=== PATIENT | male | born 1965 | race Caucasian/White ===

== ENCOUNTER 2018-01-26 06:27 | Emergency (ER) | payer BC, OTHER ==
[2018-01-26 06:47] VITALS: TEMP 98.7; O2SAT 96
--- NOTE | 2018-01-26 06:50 | ED.PDOC ---
History of Present Illness - General Source: patient Exam Limitations: no limitations - History of Present Illness Initial Comments: the patient is a 52-year-old male presenting to the emergency room secondary to pain in his right testicle and indeed extending of the spermatic cord to the right lower quadrant. Pain has been intermittent over the last 6 months. No real urinary symptoms. He does lift weights. He did have a hydrocele repair on the left previously. The testicle itself feels essentially normal to me. No history of any penile discharge. No history of any significant high-risk behavior. No fevers. rotation of the testicle does not seem to improve or worsen the pain nor does adding or removing weight of the testicle. Timing/Duration: other - 6 months Severity: moderate Improving Factors: nothing Worsening Factors: nothing Associated Symptoms: denies symptoms <Dre Rushing - Last Filed: 01/26/18 06:58> <Jelly Anderson - Last Filed: 01/26/18 08:52> - General Chief Complaint: Problem Stated Complaint: swollen rt tesiticle Time Seen by Provider: 01/26/18 06:42 - History of Present Illness Allergies/Adverse Reactions: Allergies NO KNOWN ALLERGY Allergy (Verified 02/09/16 08:29) Home Medications: Ambulatory Orders Amlodipine Besylate [Norvasc] 10 mg PO DAILY 08/24/14 Clopidogrel Bisulfate [Plavix] 75 mg PO QD 08/24/14 Hydrochlorothiazide 25 mg PO DAILY 08/24/14 Lisinopril 40 mg PO BID 08/24/14 Metformin HCl 500 mg PO DAILY 08/24/14 Simvastatin [Zocor] 40 mg PO DAILY 08/24/14 Acetaminophen W/ Codeine [Tylenol W/ CODEINE #3] 1 ea PO Q6HRS PRN #30 Tamsulosin HCl [Flomax] 0.4 mg PO BEDTIME #10 cap 01/26/18 Review of Systems - Review of Systems Constitutional: States: no symptoms reported EENTM: States: no symptoms reported Respiratory: States: no symptoms reported Cardiology: States: no symptoms reported Gastrointestinal/Abdominal: States: see HPI Genitourinary: States: see HPI Musculoskeletal: States: no symptoms reported Skin: States: no symptoms reported Neurological: States: no symptoms reported Endocrine: States: no symptoms reported All other Systems: No Change from Baseline <Luan Rushingy Shar - Last Filed: 01/26/18 06:58> Past Medical History (General) - Patient Medical History Hx Seizures: No Hx Stroke: No Hx Dementia: No Hx Asthma: No Hx of COPD: No Hx Cardiac Disorders: Yes - DC 5 yrs ago Hx Congestive Heart Failure: No Hx Pacemaker: No Hx Hypertension: Yes Hx Thyroid Disease: No Hx Diabetes: Yes Hx Gastroesophageal Reflux: Yes Hx Renal Disease: No Hx Cancer: No Hx of HIV: No Hx Hepatitis C: No Hx MRSA: No Surgical History: tonsillectomy, other - Vaccination History Hx Tetanus, Diphtheria Vaccination: No Hx Influenza Vaccination: No Hx Pneumococcal Vaccination: No - Social History Hx Tobacco Use: No Hx Alcohol Use: No Hx Substance Use: No Hx Substance Use Treatment: No Hx Depression: No <СергейDre Filed: 01/26/18 06:58> Family Medical History - Family History Mother Family History: No Known Living Status: Still Living Hx Family Diabetes: Yes <Dre Rushing Last Filed: 01/26/18 06:58> Physical Exam - Physical Exam General Appearance: Alert, Comfortable, No apparent distress Eye Exam: bilateral normal Ears, Nose, Throat: hearing grossly normal Neck: full range of motion Respiratory: no respiratory distress, no accessory muscle use Cardiovascular/Chest: normal peripheral pulses, no edema Peripheral Pulses: radial,right: 2+, radial,left: 2+ Gastrointestinal/Abdominal: non tender, soft Rectal Exam: other - examination of the testicles does not reveal significant asymmetry. No definite palpable mass or 1 sore spot. No change in skin color. 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 Urinalysis is pending at this time. A GC chlamydia has been ordered which is a send out. If the urinalysis is clear then I do suspect the patient is likely having some cord pain possibly from the start of a small inguinal hernia. Care will be handed off to the oncoming ER physician. - EKG/XRAY/CT CT Ordered: No CT Interpretation Call Back: No <СергейLuansavannah Myles - Last Filed: 01/26/18 06:58> - Results/Orders Results/Orders: 0715 PT WAS REASSED HE HAS RIGHT FLANK TO RIGHT TESTICULAR PAIN INTERMITTANT FOR 6 MONTHS HE HAS HAD RENAL CALCULOUS AT AGE 16 THE PAIN IS AT TIMES ASSOCIATED WITH NAUSEA HE DENIES FEVER CHILLS NO GROSS HEMATURIA PE UNREMARKABLE CT ABD A URETERC CALCULOUS IS NOTED IN THE PROXIMAL URETER WITH MILD HYDRONEPHROSIS WILL CHECK CBC AND CHEMISTRY TO CHECK CALCIUM RENAL FUNCTION AND RULE OUT POSSIBLE INFECTION ASSOCIATED WITH PARTIAL OBSTRUCTION WILL GIVE TORADOL FOR RELEIF OF PAIN Laboratory Tests 01/26/18 06:41 Urine Color Yellow Urine Appearance Clear Urine pH 6.0 Ur Specific [place] 1.025 Urine Protein 30 Urine Glucose (UA) 100 H Urine Ketones Negative Urine Blood Trace-intact H Urine Nitrite Negative Urine Bilirubin Negative Urine Urobilinogen 0.2 Ur Leukocyte Esterase Negative Urine RBC 1-3 Urine WBC 0 Ur Epithelial Cells 0 Urine Bacteria 0 Laboratory Tests 01/26/18 01/26/18 01/26/18 06:41 08:00 08:00 WBC 6.8 RBC 5.88 Hgb 17.0 Hct 52.1 H MCV 88.6 MCH 29.0 MCHC 32.7 L RDW 14.4 Plt Count 299 MPV 8.4 Absolute Neuts (auto) 3.80 Absolute Lymphs (auto) 2.00 Absolute Monos (auto) 0.80 Absolute Eos (auto) 0.10 Absolute Basos (auto) 0.00 Neutrophils % 56.1 Lymphocytes % 29.9 Monocytes % 11.6 H Eosinophils % 1.8 Basophils % 0.6 Sodium 143 Potassium 3.6 Chloride 106 Carbon Dioxide 29 Anion Gap 11.6 L BUN 17 Creatinine 1.65 H BUN/Creatinine Ratio 10.3 Random Glucose 171 H Serum Osmolality 290.6 Calcium 10.5 H Total Bilirubin 0.8 AST 23 ALT 24 Alkaline Phosphatase 55 Serum Total Protein 7.6 Albumin 4.4 Globulin 3.2 Albumin/Globulin Ratio 1.4 Urine Color Yellow Urine Appearance Clear Urine pH 6.0 Ur Specific [place] 1.025 Urine Protein 30 Urine Glucose (UA) 100 H Urine Ketones Negative Urine Blood Trace-intact H Urine Nitrite Negative Urine Bilirubin Negative Urine Urobilinogen 0.2 Ur Leukocyte Esterase Negative Urine RBC 1-3 Urine WBC 0 Ur Epithelial Cells 0 Urine Bacteria 0 <Jelly Anderson - Last Filed: 01/26/18 08:52> Departure <Dre Rushing - Last Filed: 01/26/18 06:58> - Departure Time of Disposition: 08:48 Diet: diabetic diet Comments: suggest to follow with PCP AND Urologist <Jelly Anderson - Last Filed: 01/26/18 08:52> - Departure Clinical Impression: Ureteric calculus Clinical Impression: (Ruled Out): Testicle pain Disposition: Discharge to Home or Self Care Condition: Good Departure Forms: ED Discharge - Pt. Copy, Patient Portal Self Enrollment Referrals: Gonzalo Nguyen MD [Primary Care Provider] - 1-2 Weeks Prescriptions: Acetaminophen W/ Codeine [Tylenol W/ CODEINE #3] 1 ea PO Q6HRS PRN #30 PRN Reason: Abdominal Cramping Tamsulosin HCl [Flomax] 0.4 mg PO BEDTIME #10 cap Home Medications: Ambulatory Orders Amlodipine Besylate [Norvasc] 10 mg PO DAILY 08/24/14 Clopidogrel Bisulfate [Plavix] 75 mg PO QD 08/24/14 Hydrochlorothiazide 25 mg PO DAILY 08/24/14 Lisinopril 40 mg PO BID 08/24/14 Metformin HCl 500 mg PO DAILY 08/24/14 Simvastatin [Zocor] 40 mg PO DAILY 08/24/14 Acetaminophen W/ Codeine [Tylenol W/ CODEINE #3] 1 ea PO Q6HRS PRN #30 Tamsulosin HCl [Flomax] 0.4 mg PO BEDTIME #10 cap 01/26/18
--- NOTE | 2018-01-26 07:40 | CT ---
EXAM DESCRIPTION: Abdoment/Pelvis w/o Contrast CLINICAL HISTORY:52 years Male, right renal colic Comparison: July 29, 2014 TECHNIQUE: Contiguous axial images of the abdomen and pelvis were obtained followed by reconstruction images. This exam was performed according to our departmental dose-optimization program, which includes automated exposure control, adjustment of the mA and/or kV according to patient size and/or use of iterative reconstruction technique. FINDINGS: Lung bases: Lung bases are clear. Heart: Visualized heart is within normal limits in size. Liver:Unchanged left lobe liver cyst. Gallbladder:Unremarkable. No gallstones. No gallbladder wall thickening or pericholecystic fluid. Spleen:Unremarkable Pancreas: Pancreas is unremarkable. Adrenal glands:Within normal limits. Kidneys/ureters:5 mm calculus left renal lower pole. No left hydronephrosis. 6.8 mm calculus in the right proximal/mid ureter with resultant moderate hydroureteronephrosis. Additional punctate calculi in the right and left kidney. Bladder:Unremarkable. Pelvic organs: No acute abnormality Vascular structures: within normal limits Peritoneum: No free fluid. Lymph nodes: No abnormal lymph nodes. Stomach/small bowel/colon: Stomach is unremarkable. Small bowel is unremarkable. Colon is unremarkable. Appendix: No evidence of appendicitis. Bones: Mild spine degenerative changes. Soft tissues: Unremarkable.. IMPRESSION: 6.8 mm calculus in the right proximal/mid ureter with resultant moderate hydroureteronephrosis. Electronically signed by: Bayron Minaya MD 01/26/2018 7:38 AM CDT
[2018-01-26] MEDS ORDERED: KETOROLAC TROMETHAMINE INJ 30 MG/ML VIAL IV ONE (07:58)
[2018-01-26 08:38] VITALS: BP 149/99
== END 2018-01-26 09:00 | disposition home or self-care (01) ==
LOC: ER 06:27
DX: N13.2 Hydronephrosis with renal and ureteral calculous obstruction (principal); N50.811 Right testicular pain; E11.9 Type 2 diabetes mellitus without complications; K21.9 Gastro-esophageal reflux disease without esophagitis; I10 Essential (primary) hypertension; I25.2 Old myocardial infarction; Z79.899 Other long term (current) drug therapy
CPT/HCPCS: 36415; 74176; 80053; 81001; 85025; 87491; 87591; J1885

== ENCOUNTER → 2018-01-31 | Outpatient (CLI) | payer OTHER ==
--- NOTE | 2018-02-01 09:02 | RAD ---
EXAM DESCRIPTION: KUB CLINICAL HISTORY: KIDNEY STONES COMPARISON: CT of the abdomen pelvis dated 26 January 2018 TECHNIQUE: AP supine abdomen FINDINGS: A 7.4 mm diameter calculus is seen along the course of the proximal right ureter. Phleboliths are observed in the pelvis. A tiny 3.2 mm diameter calculus is seen overlying the left kidney. No right renal calculi are detected. The psoas margins are intact. The bowel gas pattern is unremarkable. No organomegaly is detected. IMPRESSION: 1. A 7.4 mm diameter calculus is observed along the course the proximal right ureter. 2. A mid pole left renal calculus is observed. Electronically signed by: Jordi Ortega MD 02/01/2018 9:00 AM CDT
== END ==
LOC: RAD 14:24
PROVIDERS: ATTEND Urology
DX: N20.2 Calculus of kidney with calculus of ureter (principal)

== ENCOUNTER 2020-04-15 18:22 | Emergency (ER) | payer BC, OTHER ==
--- NOTE | 2020-04-15 18:43 | ED.PDOC ---
History of Present Illness - General Chief Complaint: General Stated Complaint: L leg/arm numbness & ataxia Time Seen by Provider: 04/15/20 18:38 Source: patient Exam Limitations: no limitations, clinical condition - History of Present Illness Initial Comments: PATIENT PRESENTS WITH MILD LEFT SIDED WEAKNESS OF ARM AND LEG AND ATAXIA OF BOTH SINCE ABOUT 0700 THIS MORNING. DENIES OTHER SYMPTOMS, NO SOB, NO COUGH, NO FEVER. STATES HE HAD A OUTPATIENT BACK PROCEDURE DONE YESTERDAY BUT NO COMPLICATIONS FROM IT. PATIENT HAS BEEN OFF HIS XERALTO FOR 7 DAYS FOR THIS PROCEDURE PRIOR TO THE ONSET OF THESE SYMPTOMS. Improving Factors: nothing Worsening Factors: nothing Associated Symptoms: denies symptoms Allergies/Adverse Reactions: Allergies NO KNOWN ALLERGY Allergy (Verified 04/15/20 18:46) Home Medications: Ambulatory Orders Amlodipine Besylate [Norvasc] 10 mg PO DAILY 08/24/14 Clopidogrel Bisulfate [Plavix] 75 mg PO QD 08/24/14 Hydrochlorothiazide 25 mg PO DAILY 08/24/14 Lisinopril 40 mg PO BID 08/24/14 Metformin HCl [Metformin Hydrochloride] 500 mg PO DAILY 08/24/14 Simvastatin [Zocor] 40 mg PO DAILY 08/24/14 Acetaminophen W/ Codeine [Tylenol W/ CODEINE #3] 1 ea PO Q6HRS PRN #30 01/26/18 Tamsulosin HCl [Flomax] 0.4 mg PO BEDTIME #10 cap 01/26/18 Review of Systems - Review of Systems Constitutional: States: no symptoms reported EENTM: States: no symptoms reported Respiratory: States: no symptoms reported Cardiology: States: no symptoms reported Gastrointestinal/Abdominal: States: no symptoms reported Genitourinary: States: no symptoms reported Musculoskeletal: States: no symptoms reported Skin: States: no symptoms reported Neurological: States: see HPI Past Medical History (General) - Patient Medical History Hx Seizures: No Hx Stroke: No Hx Dementia: No Hx Asthma: No Hx of COPD: No Hx Cardiac Disorders: Yes - DC 5 yrs ago Hx Congestive Heart Failure: No Hx Pacemaker: No Hx Hypertension: Yes Hx Thyroid Disease: No Hx Diabetes: Yes Hx Gastroesophageal Reflux: Yes Hx Renal Disease: No Hx Cancer: No Hx of HIV: No Hx Hepatitis C: No Hx MRSA: No - Vaccination History Hx Tetanus, Diphtheria Vaccination: No Hx Influenza Vaccination: No Hx Pneumococcal Vaccination: No - Social History Hx Tobacco Use: No Hx Alcohol Use: No Hx Substance Use: No Hx Substance Use Treatment: No Hx Depression: No Family Medical History - Family History Mother Family History: No Known Living Status: Still Living Hx Family Diabetes: Yes Physical Exam - Physical Exam General Appearance: Agitated, Alert, Comfortable, Well Developed, Well Groomed, Well Hydrated, Well Nourished ENT Exam: normal ENT inspection, hearing grossly normal, TMs normal Neck: non-tender, full range of motion, supple, normal inspection Respiratory: chest non-tender, lungs clear, normal breath sounds, no respiratory distress Cardiovascular/Chest: normal peripheral pulses, regular rate, rhythm, no edema, no gallop Gastrointestinal/Abdominal: normal bowel sounds, non tender, soft, no organomegaly, no pulsatile mass, abnormal bowel sounds Back Exam: normal inspection, no CVA tenderness, no vertebral tenderness, CVA tenderness (L) Extremities Exam: non-tender, normal range of motion, no evidence of injury Mental Status: alert, oriented x 3, depressed affect service correspondent Exam: normal hearing, normal speech, PERRL, other - SLOWED MICH ON LEFT, OTHERWISE NORMAL EXAM THROUGHOU Coordination/Gait: normal gait, negative Romberg's sign, ABN nose to finger (L) Motor/Sensory: no motor deficit, no sensory deficit, no pronator drift, weak motor strength LUE Skin Exam: normal color, warm/dry Progress - Progress Progress: 04/15/20 21:22 DISCUSSED WITH TELENEUROLOGY, RECOMMEND HEPARARINIZATION AND TRANSFER TO [facility]. 04/15/20 21:24 DISCUSSED WITH PATIENT AND HIS AND THEY AUTHORIZE TRANSFER. Departure - Departure Clinical Impression: Acute cerebrovascular accident (CVA), Cavernous sinus thrombosis Time of Disposition: 21:22 Disposition: Discharge to Home or Self Care Departure Forms: ED Discharge - Pt. Copy, Patient Portal Self Enrollment Referrals: Keegan Hahn MD [Primary Care Provider] - 1-2 Weeks Home Medications: Ambulatory Orders Amlodipine Besylate [Norvasc] 10 mg PO DAILY 08/24/14 Clopidogrel Bisulfate [Plavix] 75 mg PO QD 08/24/14 Hydrochlorothiazide 25 mg PO DAILY 08/24/14 Lisinopril 40 mg PO BID 08/24/14 Metformin HCl [Metformin Hydrochloride] 500 mg PO DAILY 08/24/14 Simvastatin [Zocor] 40 mg PO DAILY 08/24/14 Acetaminophen W/ Codeine [Tylenol W/ CODEINE #3] 1 ea PO Q6HRS PRN #30 01/26/18 Tamsulosin HCl [Flomax] 0.4 mg PO BEDTIME #10 cap 01/26/18
--- NOTE | 2020-04-15 19:35 | CT ---
EXAM DESCRIPTION: Head (accession [id number]), CTA Head (accession [id number]), CTA Neck (accession [id number]) CLINICAL HISTORY: LEFT SIDED WEAKNESS COMPARISON: None Available TECHNIQUE: Contiguous axial CT images of the head and neck were obtained. Images were obtained prior to and following intravenous contrast administration. Coronal and sagittal reconstructions were then created along with MIPs through the vessels of [place] and the neck. This exam was performed according to our departmental dose-optimization program, which includes automated exposure control, adjustment of the mA and/or kV according to patient size and/or use of iterative reconstruction technique. NASCET criteria utilized for the evaluation of any stenotic lesions. FINDINGS: There is 30% narrowing of the left ICA cavernous portion. There is no flow seen in the left transverse sinus or sigmoid sinus or left internal jugular vein. However the superior sagittal sinus opacifies normally as does the right transverse sinus and sigmoid sinus and right internal jugular vein. The right transverse sinus and sigmoid sinus and internal jugular vein appear unusually plump, suggesting that they are providing collateral flow from the left transverse sinus and sigmoid sinus and internal jugular vein. Please note that no postcontrast images of the neck were submitted for interpretation. This renders the neck portion of the exam nondiagnostic unless there are postcontrast images that have not yet been submitted for interpretation. There is no evidence of acute mass, mass effect, midline shift or hemorrhage. The ventricles and extra-axial CSF spaces are unremarkable. The brain parenchyma appears normal for the patient's age. There is moderate right maxillary sinus mucosal thickening. There is no additional evidence of flow-limiting stenosis, vascular malformation, or aneurysm in the vessels of the [place] or neck. IMPRESSION: Findings are worrisome for acute thrombus of the left transverse and sigmoid sinus and left internal jugular vein, with compensatory collateral flow to the right transverse and sigmoid sinus and right internal jugular vein. Mild left cavernous ICA narrowing. No other acute intracranial abnormality. No other significant vascular abnormality in the vessels of the [place] or neck. Electronically signed by: Pasha Dalton 04/15/2020 7:33 PM RECEIVABLES SPECIALIST
--- NOTE | 2020-04-15 19:35 | CT ---
EXAM DESCRIPTION: Head (accession [id number]), CTA Head (accession [id number]), CTA Neck (accession [id number]) CLINICAL HISTORY: LEFT SIDED WEAKNESS COMPARISON: None Available TECHNIQUE: Contiguous axial CT images of the head and neck were obtained. Images were obtained prior to and following intravenous contrast administration. Coronal and sagittal reconstructions were then created along with MIPs through the vessels of [place] and the neck. This exam was performed according to our departmental dose-optimization program, which includes automated exposure control, adjustment of the mA and/or kV according to patient size and/or use of iterative reconstruction technique. NASCET criteria utilized for the evaluation of any stenotic lesions. FINDINGS: There is 30% narrowing of the left ICA cavernous portion. There is no flow seen in the left transverse sinus or sigmoid sinus or left internal jugular vein. However the superior sagittal sinus opacifies normally as does the right transverse sinus and sigmoid sinus and right internal jugular vein. The right transverse sinus and sigmoid sinus and internal jugular vein appear unusually plump, suggesting that they are providing collateral flow from the left transverse sinus and sigmoid sinus and internal jugular vein. Please note that no postcontrast images of the neck were submitted for interpretation. This renders the neck portion of the exam nondiagnostic unless there are postcontrast images that have not yet been submitted for interpretation. There is no evidence of acute mass, mass effect, midline shift or hemorrhage. The ventricles and extra-axial CSF spaces are unremarkable. The brain parenchyma appears normal for the patient's age. There is moderate right maxillary sinus mucosal thickening. There is no additional evidence of flow-limiting stenosis, vascular malformation, or aneurysm in the vessels of the [place] or neck. IMPRESSION: Findings are worrisome for acute thrombus of the left transverse and sigmoid sinus and left internal jugular vein, with compensatory collateral flow to the right transverse and sigmoid sinus and right internal jugular vein. Mild left cavernous ICA narrowing. No other acute intracranial abnormality. No other significant vascular abnormality in the vessels of the [place] or neck. Electronically signed by: Pasha Dalton 04/15/2020 7:33 PM INSPECTOR WIRE ROPE
--- NOTE | 2020-04-15 19:35 | CT ---
EXAM DESCRIPTION: Head (accession [id number]), CTA Head (accession [id number]), CTA Neck (accession [id number]) CLINICAL HISTORY: LEFT SIDED WEAKNESS COMPARISON: None Available TECHNIQUE: Contiguous axial CT images of the head and neck were obtained. Images were obtained prior to and following intravenous contrast administration. Coronal and sagittal reconstructions were then created along with MIPs through the vessels of [place] and the neck. This exam was performed according to our departmental dose-optimization program, which includes automated exposure control, adjustment of the mA and/or kV according to patient size and/or use of iterative reconstruction technique. NASCET criteria utilized for the evaluation of any stenotic lesions. FINDINGS: There is 30% narrowing of the left ICA cavernous portion. There is no flow seen in the left transverse sinus or sigmoid sinus or left internal jugular vein. However the superior sagittal sinus opacifies normally as does the right transverse sinus and sigmoid sinus and right internal jugular vein. The right transverse sinus and sigmoid sinus and internal jugular vein appear unusually plump, suggesting that they are providing collateral flow from the left transverse sinus and sigmoid sinus and internal jugular vein. Please note that no postcontrast images of the neck were submitted for interpretation. This renders the neck portion of the exam nondiagnostic unless there are postcontrast images that have not yet been submitted for interpretation. There is no evidence of acute mass, mass effect, midline shift or hemorrhage. The ventricles and extra-axial CSF spaces are unremarkable. The brain parenchyma appears normal for the patient's age. There is moderate right maxillary sinus mucosal thickening. There is no additional evidence of flow-limiting stenosis, vascular malformation, or aneurysm in the vessels of the [place] or neck. IMPRESSION: Findings are worrisome for acute thrombus of the left transverse and sigmoid sinus and left internal jugular vein, with compensatory collateral flow to the right transverse and sigmoid sinus and right internal jugular vein. Mild left cavernous ICA narrowing. No other acute intracranial abnormality. No other significant vascular abnormality in the vessels of the [place] or neck. Electronically signed by: Pasha Dalton 04/15/2020 7:33 PM DUNGEON MASTER
--- NOTE | 2020-04-15 20:40 | CT ---
PROCEDURE: CT Angiography Neck With Intravenous Contrast CLINICAL INDICATION: The patient is 54 years old and is Male; CVA TECHNIQUE: Axial computed tomographic angiography images of the neck with intravenous contrast. This CT exam was performed using one or more of the following dose reduction techniques: automated exposure control, adjustment of the mA and/or kV according to patient size, and/or use of iterative reconstruction technique. MIP reconstructed images were created and reviewed. DLP: 395 mGy*cm COMPARISON: CTA neck of the same day. FINDINGS: VASCULATURE: RIGHT COMMON CAROTID ARTERY: Unremarkable. No significant stenosis. No dissection or occlusion. RIGHT INTERNAL CAROTID ARTERY: Unremarkable. Extracranial segment is patent with no significant stenosis. No dissection or occlusion. RIGHT EXTERNAL CAROTID ARTERY: Unremarkable. No occlusion. RIGHT VERTEBRAL ARTERY: Unremarkable. No significant stenosis. No dissection or occlusion. LEFT COMMON CAROTID ARTERY: Unremarkable. No significant stenosis. No dissection or occlusion. LEFT INTERNAL CAROTID ARTERY: Unremarkable. Extracranial segment is patent with no significant stenosis. No dissection or occlusion. LEFT EXTERNAL CAROTID ARTERY: Unremarkable. No occlusion. LEFT VERTEBRAL ARTERY: Unremarkable. No significant stenosis. No dissection or occlusion. OTHER VASCULATURE: Intracranial venous structures are not well evaluated. NECK: BONES/JOINTS: Advanced multilevel degenerative changes. No acute fracture. No dislocation. C6-7 ACDF changes. SOFT TISSUES: Unremarkable as visualized. No mass. CAROTID STENOSIS REFERENCE USING NASCET CRITERIA: % ICA stenosis = (1 - narrowest ICA diameter/diameter of distal cervical ICA) x 100. Mild - <50% stenosis. Moderate - 50-69% stenosis. Severe - 70-94% stenosis. Near occlusion - 95-99% stenosis. Occluded - 100% stenosis. IMPRESSION: 1. No cervical arterial flow-limiting stenosis. Intracranial venous structures are not well evaluated. 2. Advanced multilevel abdomen changes. Electronically signed by: Andrea Suggs DO 04/15/2020 8:39 PM [employer]INE [employer]
[2020-04-15 21:04] VITALS: O2SAT 96
[2020-04-15] MEDS: HEPARIN SODIUM (PORCINE) 5,000 U/ML VIAL IV ONE (21:14)
[2020-04-15] MEDS: HEPARIN PREMIX 25,000 UNITS in PREMIX BAG 1 BAG IVS SCH (21:15)
[2020-04-15 22:25] VITALS: TEMP 98.3
[2020-04-15] MEDS ORDERED: levETIRAcetam INJ 100 MG/ML VIAL IVPB ONE (22:40)
[2020-04-15] MEDS: levETIRAcetam INJ 1,000 MG in SODIUM CHLORIDE 0.9% 100ML 100 ML IVPB ONE (22:42)
[2020-04-15 22:56] VITALS: BP 143/86
== END 2020-04-15 23:03 | disposition short-term general hospital (02) ==
LOC: ER 18:22
DX: I63.9 Cerebral infarction, unspecified (principal); G81.94 Hemiplegia, unspecified affecting left nondominant side; R27.0 Ataxia, unspecified; G08 Intracranial and intraspinal phlebitis and thrombophlebitis; I25.2 Old myocardial infarction; I10 Essential (primary) hypertension; E11.9 Type 2 diabetes mellitus without complications; K21.9 Gastro-esophageal reflux disease without esophagitis; Z20.828 Contact with and (suspected) exposure to other viral communicable diseases; Z79.84 Long term (current) use of oral hypoglycemic drugs; Z79.899 Other long term (current) drug therapy; Z79.02 Long term (current) use of antithrombotics/antiplatelets